=== PATIENT | male | born 1995 | race Caucasian/White ===

== ENCOUNTER 2018-08-19 11:36 | Emergency (ER) | payer MEDICAID, OTHER ==
[2018-08-19 11:39] VITALS: BMI 25.0
[2018-08-19 11:42] VITALS: RESP 18; O2SAT 100
[2018-08-19 12:14] LABS: URINE BACTERIA RARE (<OCC); URINE BILIRUBIN NEGATIVE (NEGATIVE); URINE BLOOD NEGATIVE (NEGATIVE); URINE CLARITY Hazy (Clear); URINE COLOR Yellow (YELLOW); URINE GLUCOSE (UA) NORMAL (Normal); URINE LEUKOCYTE ESTERASE NEG Leu/uL (Negative); URINE PROTEIN 1+ mg/dL (NEGATIVE); URINE UROBILINOGEN NORMAL mg/dL (0.2-1.0)
--- NOTE | 2018-08-19 12:37 | C.PDOC ---
History Of Present Illness 22 y/o male presents to the ED complaining of 3 weeks of penile rash and pain. Denies any dysuria, hematuria, or testicular swelling/pain. Patient expresses concern for STD and requests testing for HIV. He admits to having unprotected sex with more than one partner. Otherwise he denies fever, chills, nausea, vomiting. Time Seen by Provider: 08/19/18 11:45 Chief Complaint (Nursing): Male Genitourinary History Per: Patient History/Exam Limitations: no limitations Onset/Duration Of Symptoms: Days Current Symptoms Are (Timing): Still Present Alleviating Factors: None Past Medical History Reviewed: Historical Data, Nursing Documentation, Vital Signs Vital Signs: Last Vital Signs Temp 98.7 F 08/19/18 11:39 Pulse 77 08/19/18 11:39 Resp 18 08/19/18 11:39 BP 119/83 08/19/18 11:39 Pulse Ox 100 08/19/18 11:39 - Medical History PMH: No Chronic Diseases Denies: Sexually Transmitted Disease Surgical History: No Surg Hx Family History: States: No Known Family Hx - Social History Hx Tobacco Use: Yes Hx Alcohol Use: Yes Hx Substance Use: No - Immunization History Hx Tetanus Toxoid Vaccination: No Hx Influenza Vaccination: No Hx Pneumococcal Vaccination: No Review Of Systems Except As Marked, All Systems Reviewed And Found Negative. Constitutional: Negative for: Fever, Chills Gastrointestinal: Negative for: Nausea, Vomiting, Abdominal Pain Genitourinary: Positive for: Rash, Penile Pain. Negative for: Dysuria, Hematuria, Scrotal Pain Neurological: Negative for: Weakness, Numbness Physical Exam - Physical Exam Appears: Well, Non-toxic, No Acute Distress Skin: Warm, Dry Head: Atraumatic, Normacephalic Eye(s): bilateral: Normal Inspection Neck: Normal ROM Chest: Symmetrical Respiratory: No Accessory Muscle Use, Other (No respiratory distress) Gastrointestinal/Abdominal: Soft, No Tenderness, No Distention, No Guarding Male Genital: No Testicular Tenderness, No Testicular Swelling, Other (Few vesicular lesions to the head of penis, + adenopathy to right inguinal area, No penile discharge) Extremity: Bilateral: Atraumatic, Normal ROM (x4) Neurological/Psych: Oriented x3 ED Course And Treatment - Laboratory Results Lab Results: Urine Color Yellow (YELLOW) 08/19/18 12:03 Urine Clarity Hazy (Clear) 08/19/18 12:03 Urine pH 5.0 (5.0-8.0) 08/19/18 12:03 Ur Specific Dunbar 1.030 (1.003-1.030) 08/19/18 12:03 Urine Protein 1+ mg/dL (NEGATIVE) H 08/19/18 12:03 Urine Glucose (UA) Normal mg/dL (Normal) 08/19/18 12:03 Urine Ketones 2+ mg/dL (NEGATIVE) H 08/19/18 12:03 Urine Blood Negative (NEGATIVE) 08/19/18 12:03 Urine Nitrate Negative (NEGATIVE) 08/19/18 12:03 Urine Bilirubin Negative (NEGATIVE) 08/19/18 12:03 Urine Urobilinogen Normal mg/dL (0.2-1.0) 08/19/18 12:03 Ur Leukocyte Esterase Neg Lori/uL (Negative) 08/19/18 12:03 Urine WBC (Auto) 1 /hpf (0-5) 08/19/18 12:03 Urine RBC (Auto) < 1 /hpf (0-3) 08/19/18 12:03 Urine Bacteria Rare (<OCC) 08/19/18 12:03 O2 Sat by Pulse Oximetry: 100 (RA) Pulse Ox Interpretation: Normal Medical Decision Making Medical Decision Making: Impression: Penile rash/pain, STD exposure Plan: - HSV 1/2 IGG, IGM - Chlamydia/GC swab - HIV 1&2 rapid - Urinalysis Progress: UA is clear. On further discussion, patient would also like to speak to crisis team. U-tox (+) for PCP and cannabinoids. HIV Ab screen is negative. Patient counseled regarding results. Will treat patient prophylactically for STD exposure. 13:55 Patient was evaluated by bank worker, was treated before for polysubstance abuse. Patient is not agreeable to following up outpatient at this time. Crisis will make an appointment for him. Clinical presentation is consistent with herpes. Plan is to discharge patient home with rx for ____ Disposition Counseled Patient/Family Regarding: Need For Followup, Rx Given - Disposition Referrals: [facility] [Outside] Disposition: HOME/ ROUTINE Disposition Time: 14:45 Condition: STABLE Additional Instructions: [facility] as directed by the crisis department. Follow up in clinic. Prescriptions: Acyclovir [Zovirax] 800 mg PO 5XD #35 tablet Instructions: Screening for Sexually Transmitted Infections Forms: [facility] (Chinese), General Discharge Instructions - POA Present On Arrival: None - Clinical Impression Clinical Impression: STD exposure, Depression - Scribe Statement The provider has reviewed the documentation as recorded by the Jerod Gambino Provider Attestation: All medical record entries made by the Jerod were at my direction and personally dictated by me. I have reviewed the chart and agree that the record accurately reflects my personal performance of the history, physical exam, medical decision making, and the department course for this patient. I have also personally directed, reviewed, and agree with the discharge instructions and disposition.
[2018-08-19 13:35] LABS: BARBITURATES, UR NEGATIVE (NEGATIVE); BENZODIAZEPINES, UR NEGATIVE (NEGATIVE); OPIATES, UR NEGATIVE (NEGATIVE)
[2018-08-19] MEDS ORDERED: cefTRIAXone (Rocephin) 250 mg Inj IM STA (13:54)
[2018-08-19 14:03] LABS: PHENCYCLIDINE, UR POSITIVE (NEGATIVE)
[2018-08-19 14:48] VITALS: BP 134/80; PULSE 78; TEMP 98.1
== END 2018-08-19 14:57 | disposition home or self-care (01) ==
LOC: C.ER 11:36
DX: Z20.2 Contact with and (suspected) exposure to infections with a predominantly sexual mode of transmission (principal); F32.9 Major depressive disorder, single episode, unspecified
CPT/HCPCS: 80324; 80345; 80346; 80349; 80353; 80358; 80361; 81001; 83992; 86695; 86696; 86703; 87491; 87591; 96372; 99284; J0696